=== PATIENT | male | born 1960 | race Caucasian/White ===

== ENCOUNTER → 2022-04-12 | Outpatient (CLI) | payer OTHER ==
[~2022-04-12] VITALS: Ht 193 cm; Wt 127.0 kg
[~2022-04-12] MED LIST: PROBIOTIC1 EAC1 PO
[2022-04-12 15:13] VITALS: BP 157/83
[2022-04-12 16:05] VITALS: BP 142/80
== END ==
LOC: AMSURD 14:26
DX: U07.1 COVID-19 (principal)